=== PATIENT | male | born 1970 | race Caucasian/White ===

== ENCOUNTER 2016-10-08 21:31 | Emergency (ER) | payer BC ==
--- NOTE | 2016-11-07 19:38 | ER ---
ADMIT: 10/08/2016 RM/LOC: ER [facility] MR#: [id number] [address] [address] KERLINE NEUMANN [address] [place] [address] Emergency Room Report SEX: M AGE: 46 : 1970 DATE: 10/08/2016 ADDENDUM: See T-sheet for complete H and P. A 46-year-old gentleman who presented to the ER complaining of headache. It is similar to previous headaches he has had in the past. The patient has had several workups in the past for head CT's. While in the ER, he got Toradol 30 mg IM, Reglan 10 mg IM, Benadryl 50 mg p.o. He was feeling significantly improved. After that, he was discharged home with a diagnosis of migraines. Follow up with Dr. Reeder if symptoms return and return to the ER for any concerning symptoms. Emre Nixon MD/ carolyn JOB #: [id number] CC: Emre Nixon MD, Attending Physician Thaddeus Reeder MD, Family Physician
== END 2016-10-08 22:35 | disposition home or self-care (01) ==
LOC: ER 21:31
DX: G43.909 Migraine, unspecified, not intractable, without status migrainosus (principal); Z88.0 Allergy status to penicillin

== ENCOUNTER 2017-04-12 22:09 | Observation (INO) | payer BC ==
[~2017-04-12] VITALS: Ht 170.2 cm; Wt 77.0 kg
--- NOTE | 2017-04-13 05:22 | ER ---
ADMIT: 04/12/2017 RM/LOC: 404 [facility] MR#: [id number] [address] [address] KERLINE NEUMANN [address] [place] [address] Emergency Room Report SEX: M AGE: 47 : 1970 DATE: 04/12/2017 CHIEF COMPLAINT: Altered level of consciousness. HISTORY OF PRESENT ILLNESS: The patient is a 47-year-old male with acute- onset altered level of consciousness 50 minutes prior to arrival by private auto. states that she is getting ready for bed when she returned from the bathroom, found her unresponsive on bed, clenching his teeth, possibly breath-holding because he was slightly plethoric, flushed, and having frothy sputum from his mouth. No incontinence or buccal injury. Prior history of seizure with negative CT in the remote past. No medications. The patient was given news that teenage daughter was today. Does have history of anxiety. PAST MEDICAL HISTORY: ILLNESSES: Possible seizure disorder. OPERATIONS: Left knee scope. ALLERGIES: PENICILLIN. MEDICATIONS: None. SOCIAL HISTORY: . Nonsmoker. Nondrinker. No illicit drugs. FAMILY HISTORY: Negative per chart review. REVIEW OF SYSTEMS: Unavailable due to altered level of consciousness. PHYSICAL EXAMINATION: VITAL SIGNS: Temp 97.2, pulse 62, respirations 14, BP 130/83, SaO2 of 98%. Weight 77.2 kilos. GENERAL: Obtunded, possibly postictal, will respond slowly to questions. HEENT: Normocephalic. No evidence of epistaxis, rhinorrhea, or otorrhea. No buccal injury noted. NECK: Supple. Nontender. Good carotid upstroke and volume without bruit. CHEST: Clear. Breath sounds equal. HEART: Regular rate and rhythm without murmur, gallop, or edema. ABDOMEN: Soft, nontender, nondistended without mass or megaly. Bowel sounds hypoactive. EXTREMITIES: No evidence of Homans sign, synovitis, or dermatitis. Gait not assessed due to diffuse weakness. MEDICAL DECISION MAKING: The patient's blood sugar on arrival 140. Did not respond to Narcan, was loaded with Keppra [address] head negative. EKG shows sinus bradycardia without ST-T or Q-wave change. Normal CBC, CMP. ADMIT: 04/12/2017 RM/LOC: 404 [facility] MR#: [id number] [address] [address] KERLINE NEUMANN [address] [place] [address] Emergency Room Report SEX: M AGE: 47 : 1970 Magnesium 2.7, lactic 1.4. Normal TSH. UA negative alcohol, tox screen, salicylate, and acetaminophen. Discussed case with Dr. Hendricks and resident. Resident did give orders to nursing staff. DIAGNOSIS: Seizure versus pseudo-seizure. RECOMMENDATION: Admit. Observation status Tele for Dr. Blum. ADMISSION AND DISCHARGE CONDITION: Stable. CODE STATUS: The patient is a full code. Martín Woods MD/ carolyn JOB #: [id number] CC: Roberth Blum MD, Attending Physician Roberth Blum MD, Family Physician
[2017-04-13] MEDS ORDERED: ULTRAM DPS50 MG PO (15:02)
--- NOTE | 2017-04-15 09:18 | HP ---
ADMIT: 04/12/2017 RM/LOC: 404 [facility] MR#: [id number] ACC#: [id number] [address] [address] KERLINE NEUMANN [address] [place] [address] History and Physical SEX: M AGE: 47 : 1970 DATE OF SERVICE: CHIEF COMPLAINT: Altered level of consciousness. HISTORY OF PRESENT ILLNESS: The patient is a pleasant 47-year-old male who was brought to the emergency room by his family when he had a sudden onset of decreased level of consciousness and "stiffness." reported that they were getting ready to go to bed, and when she returned from the bathroom, she found him lying on the bed with his teeth clenched and holding his breath. She denied any tonic-clonic movement but did report that he was flushed and had some frothy sputum around his mouth. There is no reported incontinence or buccal injury. The patient does have a reported history of a seizure 2 years prior. He is not currently on any medication for seizures. Upon presentation to the emergency room, the patient was documented to be obtunded with a GCS documented at 14. He was loaded with Keppra and workup was completed which was unremarkable. They attempted to ambulate the patient in the emergency room, but he stated that his "legs were too heavy." The patient was admitted for further observation. The patient had no acute events overnight. 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 This morning, he was complaining of bilateral pain in the arches of his feet. He has not been out of bed yet to evaluate his ambulatory status. He denies any headache, though reports that he has been having daily migraines but he has had a very stressful week including finding out that his teenage daughter is . He is hopeful he can be discharged today. PAST MEDICAL HISTORY: History of seizure-like activity 2 years ago, chronic migraine headaches, left knee arthroscopy. ALLERGIES: PENICILLIN. MEDICATIONS: Excedrin Migraine as needed for headache. SOCIAL HISTORY: The patient works as a train braker. He is . He is a nonsmoker and does not drink alcohol. 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 FAMILY HISTORY: The patient reports his parents are both alive. His mother suffers from Alzheimer disease and his father had a stroke 5 or 6 years ago. He does have a daughter with a seizure disorder but no other family history of seizures. REVIEW OF SYSTEMS: A 10-point review of systems completed and negative except as noted in the HPI. PHYSICAL EXAMINATION: VITAL SIGNS: 97.2, 130/83, 62, 14, 98% on room air. GENERAL: The patient awakens to voice and is oriented to self and situation. HEENT: Head is normocephalic and atraumatic. No appreciable buccal injury. ADMIT: 04/12/2017 RM/LOC: 404 [facility] MR#: [id number] [address] [place] [id number] KERLINE NEUMANN [address] [place] [address] History and Physical SEX: M AGE: 47 : 1970 Mucous membranes are moist. NECK: Supple. Nontender. HEART: Regular rate and rhythm without murmur. LUNGS: Clear to auscultation bilaterally with normal respiratory effort. ABDOMEN: Soft, nontender to palpation. Bowel sounds are present. EXTREMITIES: Without cyanosis, clubbing, or edema. The patient has mild tenderness to palpation of bilateral arches of his feet with no overlying skin changes. NEURO: The patient is awake, oriented to person, place, time, and situation. Cranial nerves II through XII are intact. Extremities have 5/5 strength and are symmetric. He has clear mentation. PSYCH: Normal mood and affect. LABORATORY DATA: Normal CBC, CMP, TSH. Urine drug screen negative as well as alcohol, salicylate, and acetaminophen. CT of the head was negative. EKG was sinus bradycardia. ASSESSMENT: 1. Altered level of consciousness with concern for seizure activity. 2. Chronic migraine headaches. PLAN: The patient was loaded with IV Keppra in the emergency room. He was admitted for observation with no further seizure-like activity or change in consciousness. At this time, he has not yet been up to ambulate to see if he still has sensation of heavy limbs. We will likely continue the patient on Keppra and follow up with Neurology as an outpatient. The patient is comfortable with this plan, so he can be discharged today. Chantelle Winkler MD Resident / Geo Hendricks MD / carolyn JOB #: [id number] CC: Roberth Blum, Attending Physician Roberth Blum, Family Physician
--- NOTE | 2017-04-15 11:19 | NUR ---
SAD person referral from ED. SWS reviewed that SAD person assessment from acute care. Pt does not have a history of suicide attempts, pt is not here for a suicide attempted or overdose, pt is not having thoughts or a plan to harm self.
== END 2017-04-13 13:42 | disposition home or self-care (01) ==
LOC: ER 22:09 → 4PCU 23:54
PROVIDERS: ADMIT Family Medicine
DX: R40.20 Unspecified coma (principal); G43.909 Migraine, unspecified, not intractable, without status migrainosus; Z88.0 Allergy status to penicillin; Z98.890 Other specified postprocedural states